=== PATIENT | male | born 1950 | race Caucasian/White ===

== ENCOUNTER → 2021-06-01 13:33 | Outpatient (CLI) | payer MEDICARE, SELFPAY ==
--- NOTE | 2021-06-01 | DI.MRI.S_ITS ---
PROCEDURE: MR SHOULDER RT WO CON INDICATIONS: Pain in right shoulder TECHNIQUE: Noncontrast oblique coronal T2 fast spin echo with fat saturation, oblique sagittal T1 spin echo and T2 fast spin echo with fat saturation, axial T1 spin echo and T2 fast spin echo with fat saturation through the shoulder. COMPARISON: None. FINDINGS: Image quality: Excellent. Rotator cuff: Tendinosis and low-grade articular and bursal surface partial thickness tear involving distal supraspinatus at its insertion on the humeral head is seen extending to musculotendinous junction. Distal infraspinatus tendinosis is noted. Tendinosis and low to moderate grade partial-thickness tear involving superior fibers of distal subscapularis is seen. No full-thickness rotator cuff tendon rupture. Sagittal images demonstrate no significant muscle atrophy. Bones and bursae: No bone marrow contusions or fractures. Moderate acromioclavicular joint osteoarthritic changes are seen with prominent downward osteophyte formation depressing the musculotendinous junction of supraspinatus. Moderate amount of glenohumeral joint effusion and subacromial subdeltoid bursal fluid is seen. Capsule and soft tissues: There is fraying of superior anterior labrum with increased T2 hyperintense signal at 12 to 1 o'clock position suggestive of superior anterior labral tear. The long head of the biceps tendinosis and low-grade intrasubstance partial-thickness tear is seen.. The rotator interval appears normal, without fibrosis. The coracohumeral ligament is normal in thickness. IMPRESSION: 1. Moderate acromioclavicular joint osteoarthritis. Moderate amount of joint effusion and subacromial subdeltoid bursal fluid. 2. Tendinosis and low-grade articular and bursal surface partial thickness tear involving distal supraspinatus extending to musculotendinous junction. Distal infraspinatus tendinosis. Tendinosis and low to moderate grade partial-thickness tear involving superior fibers of distal subscapularis. 3. Suggestion of superior anterior labral tear at 12 to 1 o'clock position. 4. Proximal intra-articular portion of long head of biceps tendinosis. Dictated by: Jin Gomze M.D. on 06/01/2021 at 15:01 Approved by: Jin Gomez M.D. on 06/01/2021 at 15:04
== END ==
PROVIDERS: PCP Physician Assistant Medical; Referring Provider Orthopaedic Surgery; Visit Provider Orthopaedic Surgery
DX: M25.511 Pain in right shoulder (principal); M77.8 Other enthesopathies, not elsewhere classified; M19.011 Primary osteoarthritis, right shoulder; M25.411 Effusion, right shoulder; M75.111 Incomplete rotator cuff tear or rupture of right shoulder, not specified as traumatic
CPT/HCPCS: 73221